=== PATIENT | male | born 1935 | race Caucasian/White ===

== ENCOUNTER 2024-04-28 06:48 | Observation (INO) | payer MEDICARE, SELFPAY ==
--- NOTE | ~2024-04-28 | US_ITS ---
EXAMINATION:US venous doppler LE BI INDICATION:Elevated d-dimer. Edema. Erythema. TECHNIQUE: Multiple grayscale, color flow and Doppler images of the right and left lower extremity de ep venous systems were obtained and reviewed. COMPARISON:No prior studies for comparison. FINDINGS: The common femoral, superficial femoral and popliteal veins demonstrate normal respiratory variation, augmentation and compressibility. Color flow is also seen within the posterior tibial, pe roneal, greater saphenous and profunda veins. IMPRESSION: 1: No lower extremity deep venous thrombosis. Reviewed, dictated and finalized at location B.
--- NOTE | ~2024-04-28 | NM_ITS ---
EXAMINATION: NM lung vent and perfusion DATE: 04/28/2024 15:23 INDICATION: Acute pulmonary edema. TECHNIQUE: 17.3 mCi Xenon-133 was given for ventilation images. 5.43 mCi Tc-99m MAA was administered intravenously for perfusion images. Scintigraphic images of the chest were obtained. COMPARISON: Chest 2 views 04/28/24 FINDINGS: The single breath image demonstrates no defects. The washout images demonstrate diffuse retention camrelita aterally. Perfusion images show no defects. IMPRESSION: 1. Normal perfusion. Reviewed, dictated and finalized at location E. IMPRESSION: 1. Normal perfusion.
--- NOTE | ~2024-04-28 | XR_ITS ---
EXAMINATION: XR chest 2V 04/28/2024 07:36 INDICATION: Substernal chest pain. Hypertension. PROCEDURE: AP and lateral views of the chest COMPARISON: No prior studies for comparison. FINDINGS: The lungs are clear. The cardiomediastinal silhouette is within normal limits. There are no pleural effusions. There is no pneumothorax suspected. IMPRESSION: 1: NO ACUTE CARDIOPULMONARY DISEASE. Reviewed, dictated and finalized at location B.
[2024-04-28 06:51] VITALS: BP 132/59; PULSE 65; RESP 16; TEMP 36.4
--- NOTE | 2024-04-28 06:55 | ECG_ITS ---
Test Date: 2024-04-28 06:56:26 Measurements Intervals [place] Rate: 63 P: -67 ME: 167 QRS: -19 QRSD: 94 T: 30 QT: 421 QTc: 432 Interpretive Statements SINUS RHYTHM BORDERLINE T WAVE ABNORMALITY- ANTEROLATERAL LEADS BASELINE ARTIFACT- I, II, III, AVR, AVL, AVF, V1-V2 BORDERLINE ECG No previous ECG available for comparison Electronically Signed On 04-28-2024 07:03:04 CDT by José Miguel Lizama D.O.
--- NOTE | 2024-04-28 07:12 | ED.CHESTPAIN ---
HPI - Chest Pain General Chief Complaint: Chest Pain Stated Complaint: CP Time Seen by Provider: 04/28/24 07:04 Source: patient and EMS Mode of arrival: EMS Limitations: no limitations History of Present Illness HPI narrative: 88 years old white male came from [facility] by ambulance because of chest pain. Patient reports waking up around 6:00 a.m. with chest tightness and diaphoresis no radiation of pain resolved after 2 nitro glycerin sublingual. Patient woke his nitro with complete recovery after 5 minutes. Currently patient is asymptomatic. History of hypertension and hyperlipidemia and positive family history of coronary artery disease. Related Data Allergies Allergy/AdvReac Type Severity Reaction Status Date / Time Sulfa (Sulfonamide Allergy Unknown Verified 04/28/24 07:07 Antibiotics) iodine AdvReac Rash Verified 04/28/24 07:07 Review of Systems Review of Systems: All systems reviewed & are unremarkable except as noted in HPI and below Exam Narrative: General appearance: Well-developed, well-nourished Skin: Normal color Head: Normocephalic, nontraumatic Eyes: Clear conjunctiva ENT: Oropharynx normal, ears normal, nose normal Neck: Supple, nontender Chest and respiratory: Airway patent, no respiratory distress, no accessory muscle use Heart: Regular rate/rhythm Abdomen: Soft, nontender, no organomegaly, quiet bowel sounds Vascular: Normal peripheral pulses, normal capillary refill. Musculoskeletal: Normal range of motion, nontender back Neurologic: Alert and oriented ?3, HEEL BLACKER is normal as tested, no gross motor deficit Course Vital Signs Vital signs: Vital Signs Temperature 36.4 C L 04/28/24 06:51 Pulse Rate 65 04/28/24 06:51 Respiratory Rate 16 04/28/24 06:51 Blood Pressure 132/59 L 04/28/24 06:51 Oxygen Delivery Room Air 04/28/24 06:51 Temperature 36.4 C L 04/28/24 06:51 Pulse Rate 65 04/28/24 06:51 Respiratory Rate 16 04/28/24 06:51 Blood Pressure 132/59 L 04/28/24 06:51 Oxygen Delivery Room Air 04/28/24 07:32 MDM - Chest Pain MDM Narrative Medical decision making narrative: Differential diagnosis includes coronary artery disease, pneumonia, chest wall pain Laboratory studies obtained on this patient showed negative troponin otherwise no significant abnormality EKG on arrival showed normal sinus rhythm no ST elevation or ST depression Chest x-ray showed no acute abnormalities. Cardiac score is 5 Currently patient is asymptomatic, admit to IMU for observation Differential Diagnosis Differential diagnosis: Likely stable angina, unstable angina pectoris, atypical chest pain, costochondritis and chest pain Medical Records Data Attestation: I reviewed the patient's medical records. Lab Data Attestation: I reviewed the patient's lab results. 04/28/24 06:59 04/28/24 06:59 Labs: Lab Results 04/28/24 Range/Units 06:59 WBC 7.6 (4.5-10.0) K/mm3 RBC 3.87 L (4.6-6.20) M/mm3 Hgb 12.7 L (14.0-18.0) g/dL Hct 38.8 L (42.0-52.0) % MCV 100.3 H (80-100) fl MCH 32.8 (26-34) pg MCHC 32.7 (32-36) g/dl RDW 13.1 (11.5-14.5) % Plt Count 177 (150-375) k/mm3 MPV 10.4 (7.4-10.4) fl Immature Gran % (Auto) 0.5 (0-0.5) % Neut % (Auto) 64.6 (45.5-73.1) % Lymph % (Auto) 23.1 (18.3-44.2) % [place] % (Auto) 7.4 (2.6-8.5) % Eos % (Auto) 3.2 (0-4.4) % Baso % (Auto) 1.2 (0.2-1.2) % Lymph # (Auto) 1.75 (0.9-3.2) K/mm3 [place] # (Auto) 0.6 (0.1-0.6) K/mm3 Eos # (Auto) 0.2 (0-0.3) K/mm3 Baso # (Auto) 0.1 (0.0-0.1) K/mm3 Abs Immat Gran (auto) 0.04 H (0.00-0.031) K/mm3 Absolute Neuts (auto) 4.9 (1.3-6.7)
[2024-04-28] MEDS: ASPIRIN 81 MG CHEWABLE TABLET 324 MG PO (07:16)
[2024-04-28 07:17] LABS: Alanine Aminotransferase 41 U/L (6-50); Albumin Level 3.7 g/dL (3.5-5.1); Alkaline Phosphatase 74 U/L (38-126); Anion Gap 6 mmol/L (4-12); Aspartate Amino Transferase 86 U/L (17-59); Bilirubin,Total 0.9 mg/dL (0.2-1.3); Blood Urea Nitrogen 23 mg/dL (9-20); Calcium 8.7 mg/dL (8.4-10.2); Carbon Dioxide 29 mmol/L (22-30); Chloride 102 mmol/L (98-107); Estimated CRCL calculation 57 ml/min; Estimated Glomerular Filt Rate > 60; Glucose 121 mg/dL (65-110); INR 1.1; Lipase 59 U/L (23-300); Potassium 3.8 mmol/L (3.4-5.0); Prothrombin Time 14.1 Seconds (11.1-14.7); Sodium 137 mmol/L (137-145)
[2024-04-28 07:18] LABS: Partial Thromboplastin Time 26.5 Seconds (22.3-36.8)
[2024-04-28] MEDS: Please add drug allergy info to patient profile. XX (07:19)
[2024-04-28 07:28] LABS: Troponin I < 0.012 ng/mL (0.000-0.034)
[2024-04-28 07:44] LABS: Basophils Absolute Auto 0.1 K/mm3 (0.0-0.1); Basophils Percent Auto 1.2 % (0.2-1.2); Eosinophils Absolute Auto 0.2 K/mm3 (0-0.3); Eosinophils Percent Auto 3.2 % (0-4.4); Hematocrit 38.8 % (42.0-52.0); Hemoglobin 12.7 g/dL (14.0-18.0); Immature Granulocyte Absolute 0.04 K/mm3 (0.00-0.031); Immature Granulocyte Percent A 0.5 % (0-0.5); Lymphocytes Absolute Auto 1.75 K/mm3 (0.9-3.2); Lymphocytes Percent Auto 23.1 % (18.3-44.2); Mean Corpuscular HGB Conc 32.7 g/dl (32-36); Mean Corpuscular Hemoglobin 32.8 pg (26-34); Mean Corpuscular Volume 100.3 fl (80-100); Mean Platelet Volume 10.4 fl (7.4-10.4); Monocytes Absolute Auto 0.6 K/mm3 (0.1-0.6); Monocytes Percent Auto 7.4 % (2.6-8.5); Neutrophils Absolute Auto 4.9 K/mm3 (1.3-6.7); Neutrophils Percent Auto 64.6 % (45.5-73.1); Platelet Count Result 177 k/mm3 (150-375); Red Blood Count 3.87 M/mm3 (4.6-6.20); Red Cell Distribution Width 13.1 % (11.5-14.5); White Blood Count 7.6 K/mm3 (4.5-10.0)
--- NOTE | 2024-04-28 08:13 | PM.IMHP ---
H&P: HPI History of Present Illness Date/Time: 04/28/24 08:13 Chief Complaint: Chest pain Narrative: 88 years old gentleman with history of hypertension, hyperlipidemia, brought to ED from [facility] by EMS because of chest pain. Patient started have sudden-onset chest pain of a 3:30 am today, a/w diaphoresis. Patient received nitroglycerin sublingual, and chest pain resolved. Patient does not have a history of a stent CABG, but the patient has family history of CAD. Patient denies headache, focal weakness, cough, fever, chills, without pain, nausea vomiting diarrhea dysuria melena bright blood per rectum. Upon arrival in the ED, patient was afebrile, blood pressure stable, no O2 desaturation on room air, lab showed mild anemia, hemoglobin 12.7, elevated BUN creatinine ratio 23/0.9, glucose of 121, troponin x1 negative, EKG shows sinus rhythm no specific ST T-wave changes, chest x-ray does not show acute cardiopulmonary issues Review of Systems Review of Systems: ROS negative except above [facility] Family History Family History Mother No problems noted. Father Heart attack Sibling Cancer Social History Social History Smoking status: Never smoker Alcohol intake: never Substance use: never Do You Feel Safe in your Home?: Yes Lack of Transportation: No Lack of Food: Never True Current Housing: I Have Housing Concerned About Future Housing: No Difficulty Paying Gas/Electric Bills: No Difficulty Paying for Meds: No Currently Unemployed: No Education: High School Diploma/GED Difficulty w/ Childcare or Family Care: No Spiritual care concerns: No Meds Home Medications and Allergies Home Medications Medication Instructions Recorded Confirmed Type aspirin 81 mg tablet 81 mg PO DAILY 04/28/24 04/28/24 History furosemide 40 mg tablet 20 mg PO DAILY 04/28/24 04/28/24 History lisinopril 10 mg tablet 10 mg PO DAILY 04/28/24 04/28/24 History pantoprazole 40 mg tablet,delayed 40 mg PO DAILY 04/28/24 04/28/24 History release tamsulosin 0.4 mg capsule 0.4 mg PO DAILY 04/28/24 04/28/24 History Allergies Allergy/AdvReac Type Severity Reaction Status Date / Time Sulfa (Sulfonamide Allergy Unknown Verified 04/28/24 07:07 Antibiotics) iodine AdvReac Rash Verified 04/28/24 07:07 Vital Signs Vital Signs - 24 hr 04/28/24 06:51 04/28/24 07:32 Temperature 97.5 F L Pulse Rate 65 Respiratory Rate 16 Blood Pressure 132/59 L Oxygen Delivery Room Air Room Air Exam Narrative: GENERAL: Pleasant, in no acute distress. Well-nourished. - EYES: EOMI. Anicteric. - HENT: Moist mucous membranes. - LUNGS: Clear to auscultation bilaterally, no wheezing, rhonchi, or rales. - CARDIOVASCULAR: Regular rate and rhythm. No murmur. No JVD. - ABDOMEN: Soft, non-tender and non-distended. No palpable masses. - EXTREMITIES: No edema. Peripheral pulses 2+. Non-tender. - NEUROLOGIC: No focal neurological deficits. CN II-XII grossly intact. - PSYCHIATRIC: Awake, Alert and oriented x 3. Appropriate mood and affect. - SKIN: No rashes or lesions. Warm. - LYMPH: No cervical lymphadenopathy. H&P: Results Labs Labs: Short CBC 04/28/24 Range/Units 06:59 WBC 7.6 (4.5-10.0) K/mm3 Hgb 12.7 L (14.0-18.0) g/dL Hct 38.8 L (42.0-52.0) % Plt Count 177 (150-375) k/mm3 [facility] 04/28/24 06:59 Sodium 137 Potassium 3.8 Chloride 102 Carbon Dioxide 29 BUN 23 H Creatinine 0.90 Glucose 121 H Calcium 8.7 Cardiac Enzymes 04/28/24 Range/Units 06:59 Troponin I < 0.012 (0.000-0.034) ng/mL Liver Function 04/28/24 Range/Units 06:59 Total Bilirubin 0.9 (0.2-1.3) mg/dL AST 86 H (17-59) U/L ALT 41 (6-50) U/L Alkaline Phosphatase 74 (38-126) U/L Albumin 3.7 (3.5-5.1) g/dL Assessment and Plan Assessment and plan
[2024-04-28 08:30] VITALS: BP 146/72; PULSE 58; RESP 16; O2SAT 100
[2024-04-28 09:12] LABS: D Dimer 1.07 ug/mL (<0.48)
[2024-04-28 09:13] VITALS: BP 161/56; PULSE 58; RESP 20; TEMP 35.9; O2SAT 98
[2024-04-28 09:13] LABS: Cholesterol 195 mg/dL (0-200); HDL Direct 52 mg/dL; Triglycerides 116 mg/dL (<150)
[2024-04-28 09:15] VITALS: BMI 31.8
[2024-04-28 09:16] LABS: Hemoglobin A1C 6.2 % (<5.7)
--- NOTE | 2024-04-28 09:16 | PM.CNCAR ---
Assessment and Plan Assessment and plan (1) Chest pain: Code(s): R07.9 - Chest pain, unspecified Status: Acute Assessment and Plan: Atypical chest pain with no objective evidence of ACS including negative troponin x 1, and EKG showing sinus rhythm with no evidence of ischemia. This is clearly non-cardiac chest discomfort most likely musculoskeletal related to sleeping on a new mattress. I do not plan to order any additional cardiac testing/workup. In my opinion he could be discharged from the hospital and does not need cardiac follow up. (2) Essential hypertension: Code(s): I10 - Essential (primary) hypertension Status: Acute Assessment and Plan: Above goal. He takes 10mg lisinopril at home, recommend increasing to 20mg at discharge. (3) Hyperlipidemia: Code(s): E78.5 - Hyperlipidemia, unspecified Status: Acute Assessment and Plan: States he discontinued his statin some time ago without advice from a doctor. Outpatient management per PCP History of Present Illness History of Present Illness Consult date/time: 04/28/24 09:16 Requesting physician: Amarilys Marin MD Consult reason: chest pain Reason For Visit: chest pain Narrative: Mr. Pearce is an 88 year old male with no cardiac history who presents to the hospital because of chest pain. Patient states that he slept on a new bed last night when he woke up he ?hurt everywhere. ? He was noticing some discomfort across his chest. He got up and sat in a recliner which did not improve the pain and he took a nitroglycerin. This also did not provide any relief. Because he was having ongoing chest discomfort he was brought to the emergency department. He states that by the time he arrived in the emergency department his chest pain had subsided. He has not had any recurrence of chest pain. His workup thus far has been negative including negative cardiac enzymes and EKG without any ischemia. At the time of my evaluation he is sitting comfortably on the edge of the bed eating breakfast with no complaints. Review of Systems Review of Systems: All systems reviewed & are unremarkable except as noted in HPI and below PMFSH Family History Family History Mother No problems noted. Father Heart attack Sibling Cancer Social History Social History Smoking status: Never smoker Meds Home Medications and Allergies Home Medications Medication Instructions Recorded Confirmed Type aspirin 81 mg tablet 81 mg PO DAILY 04/28/24 04/28/24 History furosemide 40 mg tablet 20 mg PO DAILY 04/28/24 04/28/24 History lisinopril 10 mg tablet 10 mg PO DAILY 04/28/24 04/28/24 History pantoprazole 40 mg tablet,delayed 40 mg PO DAILY 04/28/24 04/28/24 History release tamsulosin 0.4 mg capsule 0.4 mg PO DAILY 04/28/24 04/28/24 History Allergies Allergy/AdvReac Type Severity Reaction Status Date / Time Sulfa (Sulfonamide Allergy Unknown Verified 04/28/24 07:07 Antibiotics) iodine AdvReac Rash Verified 04/28/24 07:07 Vital Signs Vital Signs - 24 hr 04/28/24 06:51 04/28/24 07:32 04/28/24 08:30 Temperature 36.4 C L Pulse Rate 65 58 L Respiratory Rate 16 16 Blood Pressure 132/59 L 146/72 H Pulse Oximetry 100 Oxygen Delivery Room Air Room Air 04/28/24 09:13 Temperature 35.9 C L Pulse Rate 58 L Respiratory Rate 20 Blood Pressure 161/56 H Pulse Oximetry 98 Oxygen Delivery Exam Const: General: comfortable, no acute distress, alert and awake Orientation/consciousness: patient oriented x3 HENMT: Head: normal to inspection Eyes: General: appearance normal, both eyes and all related structures Pupils: Equal, round and reactive pupils present Neck: Neck: normal visual inspection, supple and no JVD Carotids: normal carotid upstroke Resp: Effort & Inspection: normal respir
[2024-04-28 09:23] LABS: LDL Cholesterol Direct 109 mg/dL
[2024-04-28 09:37] VITALS: BMI 31.8
[2024-04-28 10:00] VITALS: PULSE 62
--- NOTE | 2024-04-28 10:08 | ECG_ITS ---
Test Date: 2024-04-28 10:25:00 Measurements Intervals [place] Rate: 61 P: 62 IN: 202 QRS: -27 QRSD: 92 T: 33 QT: 419 QTc: 424 Interpretive Statements SINUS RHYTHM WITH SINUS ARRHYTHMIA BORDERLINE AV CONDUCTION DELAY INCOMPLETE RIGHT BUNDLE BRANCH BLOCK LOW QRS VOLTAGE IN PRECORDIAL LEADS BORDERLINE ECG Compared to ECG 04/28/2024 06:56:26 Low QRS voltage now present Electronically Signed On 04-28-2024 10:35:36 CDT by José Miguel Lizama D.O.
--- NOTE | 2024-04-28 10:11 | ADMGEN ---
This patient, Raul Pearce, was admitted to IMU Room 207-01. Patient/family oriented to hospital policies and general routines including ID bracelet, bed and alarms, visiting hours, pain management, procedures, bathroom and other care routines, personal items, smoking policy, room service/diet, and visiting hours. Information on how to activate the Rapid Response Team has been discussed. Patient/Family are encouraged to report perceived risks to care and to ask questions if they do not understand what they are told or what they should do.
[2024-04-28 10:27] LABS: Troponin I < 0.012 ng/mL (0.000-0.034)
[2024-04-28 10:52] LABS: Iron 71 ug/dL (49-181)
[2024-04-28 11:02] LABS: Percent Iron Saturation 29 % (20-50)
[2024-04-28 12:00] VITALS: BP 137/57; PULSE 64; RESP 18; TEMP 36.2; O2SAT 95
[2024-04-28] MEDS: LOSARTAN POTASSIUM 25 MG TABLET PO (13:00)
[2024-04-28] MEDS: ATORVASTATIN 40 MG TABLET PO (13:00)
[2024-04-28 13:19] LABS: Troponin I < 0.012 ng/mL (0.000-0.034)
[2024-04-28 14:00] VITALS: PULSE 64
--- NOTE | 2024-04-28 15:49 | PM.DS ---
DS: Admitting Diagnosis Discharge Date 04/28 Admitting Diagnosis CHEST PAIN DS: Discharge Diagnosis Discharge Diagnosis (1) Chest pain: Code(s): R07.9 - Chest pain, unspecified Status: Acute (2) Essential hypertension: Code(s): I10 - Essential (primary) hypertension Status: Acute (3) Dehydration: Code(s): E86.0 - Dehydration Status: Acute (4) Hyperlipidemia: Code(s): E78.5 - Hyperlipidemia, unspecified Status: Acute DS: Summary Hospital Course Hospital Course: 88 years old gentleman with history of hypertension, hyperlipidemia, brought to ED from [facility] by EMS because of chest pain. Patient started have sudden-onset chest pain of a 3:30 am today, a/w diaphoresis. Patient received nitroglycerin sublingual, and chest pain resolved. Patient does not have a history of a stent CABG, but the patient has family history of CAD. Patient denies headache, focal weakness, cough, fever, chills, without pain, nausea vomiting diarrhea dysuria melena bright blood per rectum. Upon arrival in the ED, patient was afebrile, blood pressure stable, no O2 desaturation on room air, lab showed mild anemia, hemoglobin 12.7, elevated BUN creatinine ratio 23/0.9, glucose of 121, troponin x1 negative, EKG shows sinus rhythm no specific ST T-wave changes, chest x-ray does not show acute cardiopulmonary issues The following med issues have been addressed during hospitalization Chest pain Patient had chest pain in the morning associated with diaphoresis and shortness of breath No history of CAD Troponin negative, EKG shows sinus rhythm specific med changes, chest x-ray shows no acute cardiopulmonary issues Received aspirin 325 mg 1 CAD, continue aspirin 81 mg daily p.o. Start Lipitor 40 mg daily p.o., follow-up lipid panel Follow-up echocardiogram, telemetry monitoring, follow-up ulcer troponin, EKG p.r.n. D-dimer is positive, order V/Q scan, patient is allergic to contrast, follow-up venous Doppler of lower extremities 15:50pm: V/Q scan negative PE, venous Doppler showed no DVT. [employer] saw patient, rule out ACS and recommends discharge patient Essential hypertension Not on medications Start losartan 25 mg daily p.o. Dehydration Elevated BUN creatinine ratio above 20, dry mucous membrane Possible dehydration Start normal saline 100 mL/hour Follow-up BMP per PCP Anemia No obvious bleeding On no baseline Follow-up CBC, stool guaiac, per PCP. Iron panel shows no iron deficiency Fasting glucose 121 Follow A1c 6.2 prediabetic f/u PCP Hospital course uneventful, patient will be discharged home today Time Spent with Patient Time attestation: Total time spent providing and/or coordinating discharge services: Exam Narrative: GENERAL: Pleasant, in no acute distress. Well-nourished. - EYES: EOMI. Anicteric. - HENT: Moist mucous membranes. - LUNGS: Clear to auscultation bilaterally, no wheezing, rhonchi, or rales. - CARDIOVASCULAR: Regular rate and rhythm. No murmur. No JVD. - ABDOMEN: Soft, non-tender and non-distended. No palpable masses. - EXTREMITIES: No edema. Peripheral pulses 2+. Non-tender. - NEUROLOGIC: No focal neurological deficits. CN II-XII grossly intact. - PSYCHIATRIC: Awake, Alert and oriented x 3. Appropriate mood and affect. - SKIN: No rashes or lesions. Warm. - LYMPH: No cervical lymphadenopathy. DS: Data Data Completed and Pending Labs on day of discharge: Labs from last 24 hours 04/28/24 04/28/24 04/28/24 12:50 09:57 06:59 WBC 7.6 RBC 3.87 L Hgb 12.7 L Hct 38.8 L MCV 100.3 H MCH 32.8 MCHC 32.7 RDW 13.1 Plt Count 177 MPV 10.4 Immature Gran % (Auto) 0.5 Neut % (Auto) 64.6 Lymph % (Auto) 23.1 [place] % (Auto) 7.4 Eos % (Auto) 3.2 Baso % (Auto) 1.2 Lymph # (Auto) 1.75 [place] # (Auto) 0.6 Eos # (Auto) 0.2 Baso # (Auto) 0.1 Abs Immat Gran (auto) 0.04 H Absolut
--- NOTE | 2024-04-28 15:49 | PM.IMPN ---
Progress Note: A&P Assessment and Plan (1) Chest pain: Code(s): R07.9 - Chest pain, unspecified Status: Acute (2) Essential hypertension: Code(s): I10 - Essential (primary) hypertension Status: Acute (3) Dehydration: Code(s): E86.0 - Dehydration Status: Acute (4) Hyperlipidemia: Code(s): E78.5 - Hyperlipidemia, unspecified Status: Acute Plan Chest pain Patient had chest pain in the morning associated with diaphoresis and shortness of breath No history of CAD Troponin negative, EKG shows sinus rhythm specific med changes, chest x-ray shows no acute cardiopulmonary issues Received aspirin 325 mg 1 CAD, continue aspirin 81 mg daily p.o. Start Lipitor 40 mg daily p.o., follow-up lipid panel Follow-up echocardiogram, telemetry monitoring, follow-up ulcer troponin, EKG p.r.n. D-dimer is positive, order V/Q scan, patient is allergic to contrast, follow-up venous Doppler of lower extremities 15:50pm: V/Q scan negative PE, venous Doppler showed no DVT. Vp [employer] saw patient, rule out ACS and recommends discharge patient Essential hypertension Not on medications Start losartan 25 mg daily p.o. Dehydration Elevated BUN creatinine ratio above 20, dry mucous membrane Possible dehydration Start normal saline 100 mL/hour Follow-up BMP per PCP Anemia No obvious bleeding On no baseline Follow-up CBC, stool guaiac, iron panel per PCP Fasting glucose 121 Follow A1c 6.2 prediabetic f/u PCP Subjective Date/time seen: 04/28/24 15:49 Interval history: When I saw and examined the patient again, patient denied chest pain, palpitation, abdomen pain, nausea vomiting. Patient afebrile, blood pressure stable Exam Narrative: GENERAL: Pleasant, in no acute distress. Well-nourished. - EYES: EOMI. Anicteric. - HENT: Moist mucous membranes. - LUNGS: Clear to auscultation bilaterally, no wheezing, rhonchi, or rales. - CARDIOVASCULAR: Regular rate and rhythm. No murmur. No JVD. - ABDOMEN: Soft, non-tender and non-distended. No palpable masses. - EXTREMITIES: No edema. Peripheral pulses 2+. Non-tender. - NEUROLOGIC: No focal neurological deficits. CN II-XII grossly intact. - PSYCHIATRIC: Awake, Alert and oriented x 3. Appropriate mood and affect. - SKIN: No rashes or lesions. Warm. - LYMPH: No cervical lymphadenopathy. Objective Data Vital Signs Vital Signs: Vital Signs - 24 hr 04/28/24 06:51 04/28/24 07:32 04/28/24 08:30 Temperature 97.5 F L Pulse Rate 65 58 L Respiratory Rate 16 16 Blood Pressure 132/59 L 146/72 H Pulse Oximetry 100 Oxygen Delivery Room Air Room Air 04/28/24 09:13 04/28/24 10:00 04/28/24 12:00 Temperature 96.7 F L 97.2 F L Pulse Rate 58 L 62 64 Respiratory Rate 20 18 Blood Pressure 161/56 H 137/57 L Pulse Oximetry 98 95 Oxygen Delivery 04/28/24 12:00 04/28/24 14:00 Temperature Pulse Rate 64 64 Respiratory Rate Blood Pressure Pulse Oximetry Oxygen Delivery Intake/Output Intake/Output: Intake & Output 04/25/24 04/26/24 04/27/24 04/28/24 23:59 23:59 23:59 23:59 Intake Total 240 Balance 240 Meds/Results Medications: Active Medications Generic Name Dose Route Start Last Admin Trade Name Freq PRN Reason Stop Dose Admin Aspirin 81 mg 04/29/24 08:00 Aspirin 81 Mg Chewable Tablet PO DAILY@0800 [facility] Atorvastatin Calcium 40 mg 04/28/24 09:00 Atorvastatin 40 Mg Tablet PO DAILY [facility] Sodium Chloride 1,000 mls @ 100 mls/hr 04/28/24 08:20 Normal Saline Iv IV CONT .Q10H [facility] Losartan Potassium 25 mg 04/28/24 09:00 Losartan Potassium 25 Mg Tablet PO DAILY [facility] Nitroglycerin 0.4 mg 04/28/24 08:25 Nitroglycerin Sl 0.4 Mg Tablet SUBLINGUAL Q5MIN PRN Chest Pain Perflutren Lipid Microsphere 0 ml 04/28/24 08:20 Perflutren Lipid Microspheres 1.5 Ml Vial Diluted To 10 Ml Total Volume IV PUSH 05/01/24 08:21
== END 2024-04-28 17:14 | disposition home or self-care (01) ==
LOC: ANHED 08:12 → ANHIMU 11:02
PROVIDERS: Emergency Medicine; Admitting Provider Hospitalist; Emergency Provider Emergency Medicine; Visit Provider Hospitalist
DX: R07.9 Chest pain, unspecified (principal); E86.0 Dehydration; I10 Essential (primary) hypertension; E78.5 Hyperlipidemia, unspecified; D64.9 Anemia, unspecified; R73.09 Other abnormal glucose; Z82.49 Family history of ischemic heart disease and other diseases of the circulatory system
CPT/HCPCS: 36415; 71046; 78582; 80053; 80061; 82728; 83036; 83540; 83550; 83690; 84484; 85025; 85380; 85610; 85730; 93005; 93970; 99285; A9270; A9540; A9558; G0378